=== PATIENT | female | born 1985 | race Caucasian/White ===

== ENCOUNTER 2020-11-27 13:32 | Emergency (ER) | payer BC, SELFPAY ==
[~2020-11-27] VITALS: Ht 152.4 cm; Wt 61.2 kg
[2020-11-27 13:35] VITALS: BP_SYST 106
[2020-11-27 16:06] LABS: BASOPHILS # (AUTO) 0.1 K/uL (0.0-0.2); BASOPHILS % (AUTO) 0.8 % (0.0-2.0); EOSINOPHILS # (AUTO) 0.1 K/uL (0.0-0.4); HEMATOCRIT 42.8 % (36-48); HEMOGLOBIN 14.6 g/dL (12.0-16.0); LYMPHOCYTES # (AUTO) 1.5 K/uL (1.0-5.5); MEAN CORPUSCULAR HEMOGLOBIN 29 pg (27-31); MEAN CORPUSCULAR HGB CONC 34 % (32-36); MEAN CORPUSCULAR VOLUME 85 fL (79.0-98.0); MONOCYTES # (AUTO) 0.8 K/uL (0.0-1.0); MONOCYTES % (AUTO) 11.5 % (1.7-9.3); NEUTROPHILS # (AUTO) 4.6 K/uL (1.8-7.7); NEUTROPHILS % (AUTO) 64.7 % (40.0-70.0); PLATELET COUNT (AUTO) 350 K/uL (130-430); RED BLOOD CELL COUNT(AUTO) 5.02 MIL/uL (4.2-6.2); RED CELL DISTRIBUTION WIDTH 14.1 % (9.0-15.0); WHITE BLOOD COUNT (AUTO) 7.1 K/uL (4.8-10.8)
[2020-11-27 16:20] LABS: INR 0.9 (0.8-1.2); PROTHROMBIN TIME 9.9 SECS (9.5-12.5)
[2020-11-27] MEDS ORDERED: IBUP-1969 PO (16:36)
[2020-11-27] MEDS ORDERED: HYDR-3917 PO (16:36)
[2020-11-27 16:42] LABS: CALCIUM 8.9 mg/dL (8.4-11.0); CREATININE 0.81 mg/dL (0.55-1.30); POTASSIUM 4.1 mmol/L (3.5-5.1); TOTAL BILIRUBIN 0.2 mg/dL (0.0-1.0)
[2020-11-27 16:43] LABS: ALBUMIN 3.6 g/dL (3.4-4.8); URIC ACID 4.4 mg/dL (2.4-7.0)
[2020-11-27 16:44] LABS: C-REACTIVE PROTEIN QUANT 2.5 mg/dL (0-0.5)
[2020-11-27 16:51] VITALS: BP_SYST 111
== END 2020-11-27 16:52 | disposition home or self-care (01) ==
LOC: SED 13:32
DX: S93.601A Unspecified sprain of right foot, initial encounter (principal); Z20.822 Contact with and (suspected) exposure to COVID-19; Z79.899 Other long term (current) drug therapy; X58.XXXA Exposure to other specified factors, initial encounter; Y93.89 Activity, other specified; Y92.89 Other specified places as the place of occurrence of the external cause; Y99.8 Other external cause status
CPT/HCPCS: 36415; 80053; 84550; 84703; 85025; 85610-TC; 85730-TC; 86140; 99284